=== PATIENT | female | born 1960 | race Two or more races ===

== ENCOUNTER 2020-08-04 10:57 | Outpatient (REF) | payer OTHER, SELFPAY ==
[2020-08-04 11:29] LABS: MANUAL DIFF FLAG NO
[2020-08-04 11:37] LABS: Basophils Percent Auto 0.8 % (0-2); Eosinophils Absolute Auto 0.1 X10*3/uL (0.0-0.4); Eosinophils Percent Auto 2.1 % (0-4); Hematocrit 40.4 % (37-47); Hemoglobin 12.9 g/dl (12.0-16.0); Imm Gran Abs Auto 0.02 X10*3/uL (0.00-0.03); Imm Gran Pct Auto 0.5 % (0.0-0.4); Lymphocytes Absolute Auto 1.8 X10*3/uL (1.2-4.9); Lymphocytes Percent Auto 48.9 % (20-40); Mean Corpuscular HGB Conc 31.9 g/dl (31.0-35.0); Mean Corpuscular Hemoglobin 28.2 pg (27.0-33.0); Mean Corpuscular Volume 88.2 fL (80-98); Mean Platelet Volume 11.1 fL (9.4-12.3); Monocytes Absolute Auto 0.3 X10*3/uL (0.1-1.2); Monocytes Percent Auto 6.6 % (2-11); Neutrophils Absolute Auto 1.5 X10*3/uL (2.0-8.3); Neutrophils Percent Auto 41.1 % (45-73); Platelet Count 295 X10*3/uL (160-400); Red Blood Count 4.58 X10*6/uL (4.20-5.50); Red Cell Distribution Width 13.4 % (11.0-16.0); White Blood Count 3.8 X10*3/uL (4.8-10.8)
[2020-08-04 11:45] LABS: Estimated Average Glucose 146 mg/dL; Hemoglobin A1c % 6.7 %
[2020-08-04 12:04] LABS: Alanine Aminotransferase 20 U/L (0-31); Albumin Level 4.3 g/dL (3.5-5.0); Alkaline Phosphatase 121 U/L (39-117); Anion Gap 10 (12-20); Aspartate Amino Transferase 24 U/L (5-31); Bilirubin Total 0.4 mg/dL (0.0-1.0); Blood Urea Nitrogen 20 mg/dL (9-16); Calcium 9.1 mg/dL (8.4-10.2); Carbon Dioxide 28 mmol/L (22-29); Chloride 105 mmol/L (96-108); Cholesterol 202 mg/dL; Estimated Glomerular Filt Rate > 60; Glucose Fasting 107 mg/dL (60-99); HDL Cholesterol 64 mg/dL; LDL Cholesterol Calculated 118 mg/dl; Potassium 4.1 mmol/l (3.3-5.1); Sodium 139 mmol/L (135-145); Total Protein 7.5 g/dL (6.5-8.0); Triglycerides 101 mg/dL
[2020-08-04 12:30] LABS: Creatinine Urine 111.62 mg/dL; Microalbum/Creatinine Ratio Ur 12.5 ug/mg cr
== END 2020-08-04 10:58 | disposition home or self-care (01) ==
LOC: HO.LAB 10:57
PROVIDERS: PCP Internal Medicine; Visit Provider Internal Medicine
DX: E11.9 Type 2 diabetes mellitus without complications (principal); E78.2 Mixed hyperlipidemia; Z00.00 Encounter for general adult medical examination without abnormal findings; Z91.14 Patient's other noncompliance with medication regimen
CPT/HCPCS: 36415; 80053; 80061; 82043; 83036; 84443; 85025

== ENCOUNTER 2020-12-07 09:46 | Outpatient (REF) | payer OTHER, SELFPAY ==
[2020-12-07 10:54] LABS: Estimated Average Glucose 309 mg/dL; Hemoglobin A1c % 12.4 %
[2020-12-07 11:29] LABS: Alanine Aminotransferase 16 U/L (0-31); Albumin Level 4.2 g/dL (3.5-5.0); Alkaline Phosphatase 157 U/L (39-117); Anion Gap 13 (12-20); Aspartate Amino Transferase 17 U/L (5-31); Bilirubin Total < 0.2 mg/dL (0.0-1.0); Blood Urea Nitrogen 12 mg/dL (9-16); Carbon Dioxide 27 mmol/L (22-29); Chloride 101 mmol/L (96-108); Cholesterol 168 mg/dL; Estimated Glomerular Filt Rate > 60; Glucose Random 328 mg/dL (60-115); HDL Cholesterol 43 mg/dL; LDL Cholesterol Calculated 101 mg/dl; Potassium 4.9 mmol/L (3.3-5.1); Sodium 136 mmol/L (135-145); Total Protein 7.3 g/dL (6.5-8.0); Triglycerides 122 mg/dL
== END 2020-12-07 09:47 | disposition home or self-care (01) ==
LOC: HO.LAB 09:46
PROVIDERS: PCP Internal Medicine; Visit Provider Internal Medicine
DX: E11.65 Type 2 diabetes mellitus with hyperglycemia (principal); E78.2 Mixed hyperlipidemia; R35.8 Other polyuria; R63.1 Polydipsia
CPT/HCPCS: 36415; 80053; 80061; 83036

== ENCOUNTER 2021-08-06 08:53 | Outpatient (REF) | payer OTHER, SELFPAY ==
[2021-08-06 10:13] LABS: MANUAL DIFF FLAG NO
[2021-08-06 10:17] LABS: Basophils Percent Auto 0.7 % (0-2); Eosinophils Absolute Auto 0.1 X10*3/uL (0.0-0.4); Eosinophils Percent Auto 1.1 % (0-4); Hematocrit 38.7 % (37.0-47.0); Hemoglobin 12.6 g/dl (12.0-16.0); Imm Gran Abs Auto 0.01 X10*3/uL (0.00-0.03); Imm Gran Pct Auto 0.2 % (0.0-0.4); Lymphocytes Absolute Auto 1.9 X10*3/uL (1.2-4.9); Lymphocytes Percent Auto 42.4 % (20-40); Mean Corpuscular HGB Conc 32.6 g/dl (31.0-35.0); Mean Corpuscular Hemoglobin 28.2 pg (27.0-33.0); Mean Corpuscular Volume 86.6 fL (80.0-98.0); Mean Platelet Volume 12.4 fL (9.4-12.3); Monocytes Absolute Auto 0.3 X10*3/uL (0.1-1.2); Monocytes Percent Auto 6.8 % (2-11); Neutrophils Absolute Auto 2.2 x10*3/uL (2.0-8.3); Neutrophils Percent Auto 48.8 % (45-73); Platelet Count 246 X10*3/uL (160-400); Red Blood Count 4.47 X10*6/uL (4.20-5.50); Red Cell Distribution Width 13.4 % (11.0-16.0); White Blood Count 4.5 X10*3/uL (4.8-10.8)
[2021-08-06 10:52] LABS: Creatinine Urine 22.81 mg/dL; Microalbumin Urine < 5.0 mg/L
[2021-08-06 11:01] LABS: Alanine Aminotransferase 18 U/L (0-31); Alkaline Phosphatase 155 U/L (39-117); Anion Gap 15 (12-20); Aspartate Amino Transferase 13 U/L (5-31); Bilirubin Total 0.3 mg/dL (0.0-1.0); Blood Urea Nitrogen 12 mg/dL (9-16); Calcium 8.6 mg/dL (8.4-10.2); Carbon Dioxide 21 mmol/L (22-29); Chloride 98 mmol/L (96-108); Cholesterol 174 mg/dL; Estimated Glomerular Filt Rate 42; Glucose Fasting 687 mg/dL (60-99); HDL Cholesterol 57 mg/dL; LDL Cholesterol Calculated 96 mg/dl; Sodium 130 mmol/L (135-145); Total Protein 6.9 g/dL (6.5-8.0); Triglycerides 107 mg/dL
[2021-08-06 11:12] LABS: Thyroid Stimulating Hormone 2.16 uIU/mL (0.32-4.0)
== END 2021-08-06 08:54 | disposition home or self-care (01) ==
LOC: HO.10HDL 08:53
PROVIDERS: Visit Provider Internal Medicine
DX: B35.1 Tinea unguium (principal); E11.65 Type 2 diabetes mellitus with hyperglycemia; E78.2 Mixed hyperlipidemia
CPT/HCPCS: 36415; 80053; 80061; 82043; 84443; 85025

== ENCOUNTER 2021-12-29 09:37 | Outpatient (REF) | payer OTHER, SELFPAY ==
[2021-12-29 11:03] LABS: Alanine Aminotransferase 14 U/L (0-31); Albumin Level 3.9 g/dL (3.5-5.0); Alkaline Phosphatase 126 U/L (39-117); Anion Gap 12 (12-20); Aspartate Amino Transferase 17 U/L (5-31); Bilirubin Total 0.5 mg/dL (0.0-1.0); Blood Urea Nitrogen 16 mg/dL (9-16); Calcium 9.1 mg/dL (8.4-10.2); Carbon Dioxide 27 mmol/L (22-29); Chloride 103 mmol/L (96-108); Estimated Glomerular Filt Rate > 60; Glucose Random 251 mg/dL (60-115); Potassium 4.1 mmol/L (3.3-5.1); Sodium 138 mmol/L (135-145); Total Protein 6.9 g/dL (6.5-8.0)
[2021-12-29 12:13] LABS: Hemoglobin A1c % > 14.0 %
== END 2021-12-29 09:38 | disposition home or self-care (01) ==
LOC: HO.10HDL 09:37
PROVIDERS: Visit Provider Internal Medicine
DX: E11.65 Type 2 diabetes mellitus with hyperglycemia (principal); Z91.14 Patient's other noncompliance with medication regimen
CPT/HCPCS: 36415; 80053; 83036

== ENCOUNTER 2022-05-25 10:28 | Outpatient (REF) | payer OTHER, SELFPAY ==
[2022-05-25 14:07] LABS: Alanine Aminotransferase 18 U/L (0-31); Alkaline Phosphatase 124 U/L (39-117); Anion Gap 15 (12-20); Aspartate Amino Transferase 18 U/L (5-31); Bilirubin Total 0.5 mg/dL (0.0-1.0); Blood Urea Nitrogen 10 mg/dL (9-16); Calcium 9.1 mg/dL (8.4-10.2); Carbon Dioxide 26 mmol/L (22-29); Chloride 97 mmol/L (96-108); Estimated Glomerular Filt Rate 58; Glucose Fasting 395 mg/dL (60-99); Potassium 4.3 mmol/L (3.3-5.1); Sodium 134 mmol/L (135-145)
[2022-05-25 14:24] LABS: Hemoglobin A1c % > 14.0 %; Thyroid Stimulating Hormone 1.84 uIU/mL (0.32-4.0)
== END 2022-05-25 10:29 | disposition home or self-care (01) ==
LOC: HO.10HDL 10:28
PROVIDERS: Visit Provider Internal Medicine
DX: E11.65 Type 2 diabetes mellitus with hyperglycemia (principal); E78.2 Mixed hyperlipidemia; R63.4 Abnormal weight loss; Z91.14 Patient's other noncompliance with medication regimen
CPT/HCPCS: 36415; 80053; 83036; 84443

== ENCOUNTER 2023-04-12 09:33 | Outpatient (REF) | payer OTHER, SELFPAY ==
[2023-04-12 10:51] LABS: MANUAL DIFF FLAG NO
[2023-04-12 11:03] LABS: Basophils Percent Auto 0.6 % (0-2); Eosinophils Percent Auto 0.8 % (0-4); Hematocrit 41.3 % (37.0-47.0); Hemoglobin 13.8 g/dl (12.0-16.0); Imm Gran Abs Auto 0.01 X10*3/uL (0.00-0.03); Imm Gran Pct Auto 0.2 % (0.0-0.4); Lymphocytes Percent Auto 40.7 % (20-40); Mean Corpuscular HGB Conc 33.4 g/dl (31.0-35.0); Mean Corpuscular Hemoglobin 29.4 pg (27.0-33.0); Mean Corpuscular Volume 87.9 fL (80.0-98.0); Mean Platelet Volume 11.5 fL (9.4-12.3); Monocytes Absolute Auto 0.3 X10*3/uL (0.1-1.2); Neutrophils Absolute Auto 2.6 x10*3/uL (2.0-8.3); Neutrophils Percent Auto 52.7 % (45-73); Platelet Count 313 X10*3/uL (160-400); Red Cell Distribution Width 12.1 % (11.0-16.0)
[2023-04-12 11:26] LABS: Hemoglobin A1c % > 14.0 %
[2023-04-12 11:43] LABS: Alanine Aminotransferase 23 U/L (0-31); Alkaline Phosphatase 124 U/L (39-117); Anion Gap 14 (12-20); Aspartate Amino Transferase 20 U/L (5-31); Bilirubin Total 0.4 mg/dL (0.0-1.0); Blood Urea Nitrogen 17 mg/dL (9-16); Calcium 9.2 mg/dL (8.4-10.2); Carbon Dioxide 24 mmol/L (22-29); Chloride 98 mmol/L (96-108); Cholesterol 217 mg/dL; Estimated Glomerular Filt Rate 55; HDL Cholesterol 67 mg/dL; LDL Cholesterol Calculated 122 mg/dl; Sodium 132 mmol/L (135-145); Thyroid Stimulating Hormone 2.34 uIU/mL (0.32-4.0); Total Protein 7.4 g/dL (6.5-8.0); Triglycerides 144 mg/dL
[2023-04-12 11:49] LABS: Creatinine Urine 34.16 mg/dL
[2023-04-12 13:26] LABS: Glucose Random 400 mg/dL (60-115)
== END 2023-04-12 09:34 | disposition home or self-care (01) ==
LOC: HO.10HDL 09:33
PROVIDERS: Visit Provider Internal Medicine
DX: Z00.01 Encounter for general adult medical examination with abnormal findings (principal); E11.65 Type 2 diabetes mellitus with hyperglycemia; E78.2 Mixed hyperlipidemia; R63.4 Abnormal weight loss
CPT/HCPCS: 36415; 80053; 80061; 82043; 83036; 84443; 85025

== ENCOUNTER 2023-07-26 08:54 | Outpatient (REF) | payer OTHER, SELFPAY ==
[2023-07-26 10:57] LABS: Alanine Aminotransferase 19 U/L (0-31); Albumin Level 4.1 g/dL (3.5-5.0); Alkaline Phosphatase 130 U/L (39-117); Anion Gap 15 (12-20); Aspartate Amino Transferase 24 U/L (5-31); Bilirubin Total 0.5 mg/dL (0.0-1.0); Blood Urea Nitrogen 13 mg/dL (9-16); Calcium 9.3 mg/dL (8.4-10.2); Carbon Dioxide 24 mmol/L (22-29); Chloride 97 mmol/L (96-108); Estimated Glomerular Filt Rate 52; Potassium 4.3 mmol/L (3.3-5.1); Sodium 132 mmol/L (135-145); Total Protein 7.4 g/dL (6.5-8.0)
[2023-07-26 11:01] LABS: Glucose Random 454 mg/dL (60-115)
[2023-07-26 11:07] LABS: Hemoglobin A1c % > 14.0 % (<6.0)
== END 2023-07-26 08:55 | disposition home or self-care (01) ==
LOC: HO.10HDL 08:54
PROVIDERS: Visit Provider Internal Medicine
DX: E11.65 Type 2 diabetes mellitus with hyperglycemia (principal)
CPT/HCPCS: 36415; 80053; 83036

== ENCOUNTER 2023-10-08 16:28 | Emergency (ER) | payer OTHER, SELFPAY ==
--- NOTE | ~2023-10-08 | CT_ITS ---
EXAMINATION: CT HEAD WITHOUT CONTRAST CT CERVICAL SPINE WITHOUT CONTRAST CLINICAL INFORMATION: Fall. Back pain. . COMPARISON: None. TECHNIQUE: Imaging was performed from the skull base to vertex without intravenous administration of contrast. In addition, helical noncontrast CT imaging was acquired through the cervical spine and source images were reviewed along with axial reconstructions and sagittal and coronal MPRs. [This CT examination was performed using dose optimization techniques as appropriate, variously including the following: *Automated exposure control *Adjustment of mA and/or kV according to patient size (this includes techniques or standardized protocols for targeted exams where dose is matched to indication/reason for exam; i.e. extremities or head) *Use of iterative reconstruction technique] DLP: 984 mGy-cm FINDINGS: HEAD: No intracranial mass, hemorrhage, or midline shift is visualized. The ventricles and sulci are proportional. Physiologic mineralization in the basal ganglia. No extra-axial collections are identified. The paranasal sinuses and mastoid air cells are well aerated. CERVICAL SPINE: There is no evidence of acute cervical spine fracture. Vertebral bodies remain normal in height. Cervical vertebrae have normal alignment. There is multilevel degenerative spondylosis of the cervical spine with disc height narrowing and endplate spurs and facet joint arthrosis No pre- or paravertebral soft tissue abnormality is identified. Limited assessment of the lung apices is unremarkable. CT/CT cervical spine wo IV con IMPRESSION: 1. No acute intracranial pathology. 2. No CT evidence of acute cervical spine fracture or traumatic subluxation
--- NOTE | ~2023-10-08 | CT_ITS ---
EXAMINATION: CT HEAD WITHOUT CONTRAST CT CERVICAL SPINE WITHOUT CONTRAST CLINICAL INFORMATION: Fall. Back pain. . COMPARISON: None. TECHNIQUE: Imaging was performed from the skull base to vertex without intravenous administration of contrast. In addition, helical noncontrast CT imaging was acquired through the cervical spine and source images were reviewed along with axial reconstructions and sagittal and coronal MPRs. [This CT examination was performed using dose optimization techniques as appropriate, variously including the following: *Automated exposure control *Adjustment of mA and/or kV according to patient size (this includes techniques or standardized protocols for targeted exams where dose is matched to indication/reason for exam; i.e. extremities or head) *Use of iterative reconstruction technique] DLP: 984 mGy-cm FINDINGS: HEAD: No intracranial mass, hemorrhage, or midline shift is visualized. The ventricles and sulci are proportional. Physiologic mineralization in the basal ganglia. No extra-axial collections are identified. The paranasal sinuses and mastoid air cells are well aerated. CERVICAL SPINE: There is no evidence of acute cervical spine fracture. Vertebral bodies remain normal in height. Cervical vertebrae have normal alignment. There is multilevel degenerative spondylosis of the cervical spine with disc height narrowing and endplate spurs and facet joint arthrosis No pre- or paravertebral soft tissue abnormality is identified. Limited assessment of the lung apices is unremarkable. CT/CT head/brain wo IV con IMPRESSION: 1. No acute intracranial pathology. 2. No CT evidence of acute cervical spine fracture or traumatic subluxation
--- NOTE | ~2023-10-08 | XR_ITS ---
EXAMINATION: XR KNEE, RIGHT CLINICAL INFORMATION: Fall. Pain. COMPARISON: None available. TECHNIQUE: Four views of the right knee. FINDINGS: There is osteopenia. No fracture. No dislocation. No joint effusion. Advanced degenerative tricompartment degenerative change. Joint narrowing and marginal bone spurs most significant at the patellofemoral and the medial femoral tibial joints. XR/XR knee RT 4V IMPRESSION: 1. No acute abnormality. 2. Advanced degenerative joint disease.
[2023-10-08 16:30] VITALS: BP 138/72; PULSE 76; RESP 18; TEMP 36.1; O2SAT 100; BMI 22.3
--- NOTE | 2023-10-08 16:31 | ED.LOWEXIN ---
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 Patient reports walking down a hallway while at work when she slipped on pudding that was spilled on the tile floor, causing her to fall backward landing flat on her back. Admits to head strike. Denies LOC. Not on AC. Endorses right knee pain at present after her right knee twisted under her during fall. Pain is localized to the medial aspect of the right knee. No radiation of pain. She was able to stand, bear weight and ambulate after fall. Reports receiving Tylenol or ibuprofen at work however can not recall which one. Denies headache, vision changes, dizziness, N/V, back pain, numbness/weakness/tingling of the LE. Related Data Allergies Allergy/AdvReac Type Severity Reaction Status Date / Time No Known Allergies Allergy Unknown UNKNOWN Unverified 06/04/20 15:50 [NO KNOWN ALLERGIES] Review of Systems Review of Systems: Constitutional: No fever, chills, fatigue, night sweats, weight changes ENT/Mouth: No ear pain, hearing loss, nasal congestion, sinus pain, rhinorrhea, sore throat Eyes: No eye pain, swelling, redness, vision changes, discharge Cardio: No chest pain, palpitations, BA, orthopnea, peripheral edema Pulm: No SOB, cough, sputum, wheezing, dyspnea, hemoptysis GI: No nausea, vomiting, hematemesis, abdominal pain, diarrhea, constipation, hematochezia, melena : No irregular bleeding, dysuria, frequency, urgency, hesitancy, hematuria, flank pain, urinary flow changes, urinary incontinence or retention MSK: No back pain, +neck pain, +right knee pain Skin: No lesions, rashes Neuro: No weakness, numbness, paresthesias, LOC, dizziness, headache All other systems reviewed and are negative. [facility] Past Medical History Attestation statement: The following information was validated with the patient. Source: old records reviewed and nursing notes reviewed Onset Date is defined in the Problem List Problems that require an onset date and time if occurred within 24 hrs of arrival to the ED Aortic Dissection and Rupture; Neurologic impairment; Cardiopulmonary Arrest; Endotracheal Intubation; Insertion or Replacement of Mechanical Circulatory Assist Device Family History Family History Father Hypertension Heart disease Mother Diabetes Degenerative joint disease Daughter ADD (attention deficit disorder) Anorexia Daughter ADD (attention deficit disorder) Social History Social History Alcohol intake: current Alcohol intake frequency: other Patient Tobacco Use Status: Former Tobacco user Advance Directives: No Advance Directives Information Provided: No Physical Exam Vital Signs: Vital Signs: Last Vital Signs Temp 97 F 10/08/23 16:30 Pulse 76 10/08/23 16:30 Resp 18 10/08/23 16:30 BP 138/72 10/08/23 16:30 Pulse Ox 100 10/08/23 16:30 O2 Del Method Room Air 10/08/23 16:30 BMI result Body Mass Index 22.3 Vital signs stable Const: General: cooperative, healthy appearing, comfortable and no acute distress Orientation/consciousness: patient oriented x3 Limitations: no limitations HEENT: Head: Yes normal to inspection, Yes No palpable skull fracture present, Yes normocephalic, Yes atraumatic, No Dale's sign, No raccoon eyes and No periorbital ecchymosis Eyes: General: appearance normal, both eyes and all related structures Conjunctivae: conjunctivae normal Sclerae: sclerae normal Pupils: Equal, round and reactive pupils present Neck: Neck: Yes normal visual inspection and Yes full ROM Chest: Chest palpation & inspection: normal inspection of the chest Resp: Effort & Inspection: normal respiratory effort and symmetric chest movement Auscultation: clear to auscultation bilaterally Cardio: Rate: regular rate Rhythm: regular rhythm Back/Spine/Pelvis: Other: No midline spinous tenderness. No paraspinal muscle tenderness. No step off deformity. Skin: General skin exam: no rashes or lesions noted Neuro: Other: Strength 5/5 intact throughout.? No saddle anesthesia.? Sensation intact to light touch.? Neurovascular intact distally.? General: patient oriented x3 and gait normal Cranial nerves: Yes Equal, round and reactive pupils present Gait exam (Neuro): Normal gait present Motor exam (neuro): 5/5 motor strength present throughout Coordination: cucvyp-bi-ofsz test normal, dzwm-oa-[id number] test normal and Normal rapid alternating movements of the distal upper extremity present (Neuro) Pupils: Normal pupillary reactivity/response: bilateral Extrem: Other: + No edema or overlying skin changes noted to right knee joint. Full ROM to right knee intact. Tender to palpation over the medial aspect of the anterior right knee without palpable deformity. Neurovascularly intact distally. 2+dp/pt pulses. ambulating with steady gait. General: Yes normal to inspection, Yes full ROM, Yes capillary refill normal and Yes normal gait Course Course Course Narrative: This is an RME: Additional HPI, ROS, PE not included below will be deferred to primary provider. Patient is a 63-year-old female presenting for evaluation after mechanical slip and fall at work resulting in twisting injury with right knee pain. Reports striking her head, no LOC, no AC, no headache. Reevaluation(s) Reevaluation #1: 1810-- XR right knee unremarkable. ct head/brain without acute bleed or skull fracture. ct cervical spine without fracture or subluxation. Patient informed of imaging results. Advised to take Tylenol and ibuprofen as needed for pain at home. Patient has remained stable throughout ED visit today. Discussed strict return precautions. All questions answered at this time. Patient is agreeable with disposition and stable for discharge. 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 Vital signs are stable. Patient is nontoxic-appearing and in no acute distress. She is sitting comfortably on the exam bed talking on the phone. Exam nonfocal. PERRLA. No palpable skull fracture. No midline spinous tenderness or paraspinal muscle tenderness bilaterally. Full ROM to C-spine intact. No effusion or overlying skin changes noted to right knee joint. Full ROM to right knee intact. Tender to palpation over the medial aspect of the anterior right knee without palpable deformity. Neurovascularly intact distally. 2+dp/pt pulses. Ambulating with steady gait. Clinical concern for headache, concussion, cervical fracture, fracture of knee, contusion. Lower suspicion for ICH, CVA/TIA. Unlikely cauda equina, epidural abscess, cord compression. X-ray right knee ordered in triage. Will add on CT head/brain/C-spine as patient reports head strike. Differential Diagnosis Differential Diagnoses: The differential diagnosis associated with the presentation includes As above. Admission/Observation Not indicated. Independent Interpretation I performed an independent interpretation of an: Plain X-Ray and CT Scan Interpretation: I have personally reviewed x-ray of right knee and agree with radiologist's interpretation. I have personally reviewed CT cervical spine and agree with radiologist's interpretation. I have personally reviewed CT head/brain and agree with radiologist's interpretation. Radiology Impression Discussion of test interpretation with radiology: I have reviewed the radiologist's reading. Radiologist Impression: CT head/brain/cervical spine wo IV con IMPRESSION: 1. No acute intracranial pathology. 2. No CT evidence of acute cervical spine fracture or traumatic subluxation XR knee RT 4V IMPRESSION: 1. No acute abnormality. 2. Advanced degenerative joint disease. Prescription Management I considered prescription management with: Pain Medication Social Determinants Patient?s care significantly limited by Social Determinants of Health including: Other Social Determinant of Health Discharge Plan Discharge Clinical Impression: Accident due to mechanical fall without injury Patient Disposition: Home, Self-Care Instructions: Fall Prevention (ED) Additional Instructions: The x-ray of your right knee did not demonstrate fracture or dislocation. The CT of your neck did not demonstrate fracture. The CT of your head/brain did not show acute bleed or skull fracture. Your workup was normal overall. You may take Tylenol and ibuprofen as needed for body aches or pains. Ice your knee for 20 minutes at a time before switching to heat. Follow-up with your PCP as needed. If symptoms persist or worsen please return to the emergency department. In the case of an emergency call 911. Referrals: Melissa Butts MD [Primary Care Provider] - Stand Alone Forms: Work/School Release Discharge Date/Time: 10/08/23 18:21
== END 2023-10-08 18:21 | disposition home or self-care (01) ==
PROVIDERS: Emergency Provider Emergency Medicine; PCP Internal Medicine
DX: S89.91XA Unspecified injury of right lower leg, initial encounter (principal); S19.9XXA Unspecified injury of neck, initial encounter; M25.561 Pain in right knee; M54.2 Cervicalgia; W01.0XXA Fall on same level from slipping, tripping and stumbling without subsequent striking against object, initial encounter; Y93.9 Activity, unspecified; Y92.9 Unspecified place or not applicable; Y99.0 Civilian activity done for income or pay; Z87.891 Personal history of nicotine dependence
CPT/HCPCS: 70450; 72125; 73564; 99284

== ENCOUNTER 2023-10-19 09:01 | Outpatient (AMB) | payer OTHER, SELFPAY ==
--- NOTE | 2023-10-19 09:03 | MHC.OFFVIS ---
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 On 10/08/23 while at work she was walking down the [place] when she slipped on spilled pudding, landing on her back with the right leg twisted under her. She was seen at [facility] after the injury where she was evaluated. 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 This is a workers comp visit. She says she was at work and slipped on a puddle, causing her to fall backwards and land with her right leg twisted underneath her. She was seen in the ED on 10/08/23 and referred here. She complains of pain with WB activities. She finds some relief from NSAIDs and icing her knee. She has a history of right knee arthritis. [facility] Family History Father Hypertension Heart disease Mother Diabetes Degenerative joint disease Daughter ADD (attention deficit disorder) Anorexia Daughter ADD (attention deficit disorder) Social History Alcohol intake: current Alcohol intake frequency: other Patient Tobacco Use Status: Former Tobacco user Review of Systems Const All systems reviewed & are unremarkable except as noted in HPI and below Physical Exam Const General: no acute distress, alert and awake Orientation/consciousness: patient oriented x3 HEENT Head: Yes normocephalic and Yes atraumatic Eyes EOM: EOMs intact bilaterally Resp Effort & Inspection: normal respiratory effort and able to speak in complete sentences Cardio Jugular venous distension: no JVD Skin General skin exam: turgor normal Rashes: no rashes Neuro General: patient oriented x3 Extrem Other: Mild effusion lateral retropatellar ttp no focal pain along joint line Psych Appearance: grossly normal Affect: normal affect Attitude: cooperative Office Procedures Joint Injection/Drain Joint Injection/Drain Details: Injected 1 mL of Decadron and 3 mL 1% lidocaine and 3 mL of 0.25% Marcaine. Site was prepped using aseptic technique. Patient tolerated the procedure well. Primary Site: right knee Approach Used: anterolateral Coding - Large joint Procedure code (CPT) selection complete Results Reviewed Results Reviewed: I personally reviewed relevant radiographs. Advandced degenerative OA Assessment & Plan Assessment & Plan (1) Arthritis of right knee: Code(s): M17.11 - Unilateral primary osteoarthritis, right knee Plan: Right knee OA with recent exacerbation after a fall at work. She is back to work and knows she has arthritis. She has benefitted from injections in the past and I injected her right knee today. She may follow up as needed. She may resume normal work activities without restriction. Plan Prepared for Ilan Juarez MD by Donald Baldwin, remote medical coder, on 10/19/23 at 9:10 AM, EST. Coding Level of Care Code New Pt Level 4 (44680) Diagnoses Arthritis of right knee M17.11 CPT Codes Coding - Large joint: 62469 - Large joint ([id number])
== END 2023-10-19 09:47 | disposition home or self-care (01) ==
PROVIDERS: PCP Internal Medicine; Visit Provider Orthopaedic Surgery
DX: M17.11 Unilateral primary osteoarthritis, right knee (principal); S80.11XA Contusion of right lower leg, initial encounter; W01.0XXA Fall on same level from slipping, tripping and stumbling without subsequent striking against object, initial encounter; Z04.2 Encounter for examination and observation following work accident
CPT/HCPCS: 20610; 99203

== ENCOUNTER → 2023-10-19 09:01 | Outpatient (BNVA) | payer OTHER, SELFPAY | PROVIDERS: PCP Internal Medicine; Visit Provider Orthopaedic Surgery | DX: M17.11 Unilateral primary osteoarthritis, right knee (principal) | CPT/HCPCS: 20610; 99202; J0665; J1100 ==

== ENCOUNTER 2024-01-31 10:06 | Outpatient (REF) | payer OTHER, SELFPAY ==
[2024-01-31 11:34] LABS: Hemoglobin A1c % > 14.0 % (<6.0)
[2024-01-31 11:42] LABS: Alanine Aminotransferase 17 U/L (0-31); Albumin Level 4.1 g/dL (3.5-5.0); Alkaline Phosphatase 126 U/L (39-117); Anion Gap 11 (12-20); Aspartate Amino Transferase 17 U/L (5-31); Bilirubin Total 0.4 mg/dL (0.0-1.0); Blood Urea Nitrogen 13 mg/dL (9-16); Calcium 9.3 mg/dL (8.4-10.2); Carbon Dioxide 27 mmol/L (22-29); Chloride 100 mmol/L (96-108); Estimated Glomerular Filt Rate > 60; Potassium 4.4 mmol/L (3.3-5.1); Sodium 134 mmol/L (135-145); Total Protein 7.4 g/dL (6.5-8.0)
[2024-01-31 11:45] LABS: Glucose Random 391 mg/dL (60-115)
== END 2024-01-31 10:07 | disposition home or self-care (01) ==
LOC: HO.10HDL 10:06
PROVIDERS: Visit Provider Internal Medicine
DX: E11.65 Type 2 diabetes mellitus with hyperglycemia (principal); M17.11 Unilateral primary osteoarthritis, right knee; Z79.4 Long term (current) use of insulin
CPT/HCPCS: 36415; 80053; 83036

== ENCOUNTER 2024-03-07 09:13 | Outpatient (REF) | payer OTHER, SELFPAY ==
[2024-03-07 10:56] LABS: MANUAL DIFF FLAG NO
[2024-03-07 11:02] LABS: Basophils Absolute Auto 0.1 X10*3/uL (0.0-0.2); Basophils Percent Auto 0.9 % (0-2); Eosinophils Absolute Auto 0.1 X10*3/uL (0.0-0.4); Eosinophils Percent Auto 1.7 % (0-4); Hematocrit 39.1 % (37.0-47.0); Hemoglobin 13.5 g/dl (12.0-16.0); Imm Gran Abs Auto 0.01 X10*3/uL (0.00-0.03); Imm Gran Pct Auto 0.2 % (0.0-0.4); Lymphocytes Absolute Auto 2.1 X10*3/uL (1.2-4.9); Lymphocytes Percent Auto 39.9 % (20-40); Mean Corpuscular HGB Conc 34.5 g/dl (31.0-35.0); Mean Corpuscular Hemoglobin 30.1 pg (27.0-33.0); Mean Corpuscular Volume 87.3 fL (80.0-98.0); Mean Platelet Volume 11.2 fL (9.4-12.3); Monocytes Absolute Auto 0.3 X10*3/uL (0.1-1.2); Monocytes Percent Auto 5.8 % (2-11); Neutrophils Absolute Auto 2.7 x10*3/uL (2.0-8.3); Neutrophils Percent Auto 51.5 % (45-73); Platelet Count 281 X10*3/uL (160-400); Red Blood Count 4.48 X10*6/uL (4.20-5.50); Red Cell Distribution Width 12.3 % (11.0-16.0); White Blood Count 5.3 X10*3/uL (4.8-10.8)
[2024-03-07 11:09] LABS: Hemoglobin A1c % > 14.0 % (<6.0)
[2024-03-07 11:21] LABS: Alanine Aminotransferase 18 U/L (0-31); Alkaline Phosphatase 119 U/L (39-117); Anion Gap 13 (12-20); Aspartate Amino Transferase 19 U/L (5-31); Bilirubin Total 0.4 mg/dL (0.0-1.0); Blood Urea Nitrogen 18 mg/dL (9-16); Calcium 9.5 mg/dL (8.4-10.2); Carbon Dioxide 23 mmol/L (22-29); Chloride 103 mmol/L (96-108); Cholesterol 180 mg/dL (<200); Estimated Glomerular Filt Rate > 60; Glucose Random 342 mg/dL (60-115); HDL Cholesterol 63 mg/dL (>40); LDL Cholesterol Calculated 96 mg/dL (<100); Potassium 4.1 mmol/L (3.3-5.1); Sodium 135 mmol/L (135-145); Total Protein 7.3 g/dL (6.5-8.0); Triglycerides 105 mg/dL (<150)
[2024-03-07 11:38] LABS: Creatinine Urine 79.88 mg/dL; Microalbum/Creatinine Ratio Ur 27.5 ug/mg cr (<30)
[2024-03-07 11:40] LABS: Thyroid Stimulating Hormone 2.35 uIU/mL (0.32-4.0)
== END 2024-03-07 09:14 | disposition home or self-care (01) ==
LOC: HO.10HDL 09:13
PROVIDERS: Visit Provider Internal Medicine
DX: E11.65 Type 2 diabetes mellitus with hyperglycemia (principal); E78.2 Mixed hyperlipidemia; M17.0 Bilateral primary osteoarthritis of knee; Z79.4 Long term (current) use of insulin
CPT/HCPCS: 36415; 80053; 80061; 82043; 82570; 83036; 84443; 85025

== ENCOUNTER 2024-05-27 10:03 | Outpatient (REF) | payer OTHER, SELFPAY ==
[2024-05-27 11:28] LABS: Alanine Aminotransferase 14 U/L (0-31); Albumin Level 4.1 g/dL (3.5-5.0); Alkaline Phosphatase 113 U/L (39-117); Anion Gap 12 (12-20); Aspartate Amino Transferase 17 U/L (5-31); Bilirubin Total 0.4 mg/dL (0.0-1.0); Blood Urea Nitrogen 17 mg/dL (9-16); Calcium 9.2 mg/dL (8.4-10.2); Carbon Dioxide 25 mmol/L (22-29); Chloride 107 mmol/L (96-108); Estimated Glomerular Filt Rate > 60; Glucose Random 163 mg/dL (60-115); Potassium 3.7 mmol/L (3.3-5.1); Sodium 140 mmol/L (135-145); Total Protein 7.5 g/dL (6.5-8.0)
[2024-05-27 11:36] LABS: Estimated Average Glucose 303 mg/dL; Hemoglobin A1c % 12.2 % (<6.0)
== END 2024-05-27 10:04 | disposition home or self-care (01) ==
LOC: HO.10HDL 10:03
PROVIDERS: Visit Provider Internal Medicine
DX: E11.9 Type 2 diabetes mellitus without complications (principal); H26.9 Unspecified cataract; Z79.4 Long term (current) use of insulin
CPT/HCPCS: 36415; 80053; 83036

== ENCOUNTER 2024-06-10 09:30 | Outpatient (AMB) | payer OTHER, SELFPAY ==
--- NOTE | 2024-06-10 09:58 | MHC.OFFVIS ---
Vital Signs 06/10/24 09:59 Height 5 ft 5 in Weight 134 lb BMI 22.3 Intake Visit Reasons: OV- B/L knee pain interest in inj Intake Note: Trang is a 63 year old female who presents today for a follow up of her right knee OA. She was last seen on 10/19/2023 where the knee was injected. The right knee injection was helpful and she would like to repeat. She also complains of pain in both of her knees, she is asking for injection and braces in both of the knees. Allergies No Known Allergies [NO KNOWN ALLERGIES] Allergy (Unknown, Unverified 10/19/23 09:04) UNKNOWN HPI HPI OV- B/L knee pain interest in inj: Details: Trang is a 63 year old female who presents today for a follow up of her right knee OA. She was last seen on 10/19/2023 where the knee was injected. The right knee injection was helpful and she would like to repeat. She also complains of pain in both of her knees, she is asking for injection and braces in both of the knees. PFSH Family History Father Hypertension Heart disease Mother Diabetes Degenerative joint disease Daughter ADD (attention deficit disorder) Anorexia Daughter ADD (attention deficit disorder) Social History Alcohol intake: current Alcohol intake frequency: other Patient Tobacco Use Status: Former Tobacco user Physical Exam Vital Signs: BMI result Body Mass Index 22.3 Const General: no acute distress, alert and awake Orientation/consciousness: patient oriented x3 HEENT Head: Yes normocephalic and Yes atraumatic Eyes EOM: EOMs intact bilaterally Resp Effort & Inspection: normal respiratory effort and able to speak in complete sentences Cardio Jugular venous distension: no JVD Skin General skin exam: turgor normal Rashes: no rashes Neuro General: patient oriented x3 Extrem Other: Mild effusion lateral retropatellar ttp no focal pain along joint line Psych Appearance: grossly normal Affect: normal affect Attitude: cooperative Office Procedures Joint Injection/Aspiration Joint Injection/Aspiration Details: Injected 1 mL of Decadron and 3 mL 1% lidocaine and 3 mL of 0.25% Marcaine. Site was prepped using aseptic technique. Patient tolerated the procedure well. Primary Site: right knee Secondary Site: left knee Approach Used: anterolateral Coding - Large joint - Glenohumeral/Tronchanteric Bursa/Intraarticular Procedure code (CPT) selection complete Results Reviewed Results Reviewed: Moderately severe right knee osteoarthritis with varus malalignment. Assessment & Plan Assessment & Plan (1) Arthritis of right knee: Code(s): M17.11 - Unilateral primary osteoarthritis, right knee Category: Medical Plan: Were right knee was injected and she was given a knee sleeve. We discussed treatment options. She is pretty adamant that she does not want surgery. In her she is young and surprisingly active considering the radiographic extent of disease. If she can return for repeat injections in no sooner than 3 months or, if she would like to discuss additional options she will contact me sooner. I suppose the next step would be viscosupplementation. (2) Osteoarthritis of left knee: Code(s): M17.12 - Unilateral primary osteoarthritis, left knee Category: Medical Plan: Injected left knee Coding Level of Care Code Est Pt Level 4 (91369) Diagnoses Arthritis of right knee M17.11 Osteoarthritis of left knee M17.12 CPT Codes Coding - Large joint: 07817 - Large joint ([id number]) Coding - Joint 7: - Glenohumeral/Tronchanteric Bursa/Intraarticular ([id number])
[2024-06-10 09:59] VITALS: BMI 22.3
== END 2024-06-10 13:48 | disposition home or self-care (01) ==
PROVIDERS: PCP Internal Medicine; Visit Provider Orthopaedic Surgery
DX: M17.0 Bilateral primary osteoarthritis of knee (principal)
CPT/HCPCS: 20610; 99214

== ENCOUNTER → 2024-06-10 09:30 | Outpatient (BNVA) | payer OTHER, SELFPAY | PROVIDERS: PCP Internal Medicine; Visit Provider Orthopaedic Surgery | DX: M17.0 Bilateral primary osteoarthritis of knee (principal) | CPT/HCPCS: 20610; J0665; J1100 ==

== ENCOUNTER 2024-08-12 10:31 | Outpatient (AMB) | payer OTHER, SELFPAY ==
--- NOTE | 2024-08-12 10:44 | MHC.OFFVIS ---
Vital Signs 08/12/24 10:46 Height 5 ft 5 in Weight 134 lb BMI 22.3 Intake Visit Reasons: OV-B/L knee arthritis-Discuss options Intake Note: Trang is a 64 year old female who presents today for a follow up of her bilateral knee OA. Hx of bilateral knee injections 06/10/24. Patient reports that this was not helpful and she would like to discuss alternative treatment options. Allergies No Known Allergies [NO KNOWN ALLERGIES] Allergy (Unknown, Unverified 08/12/24 10:46) UNKNOWN HPI HPI OV-B/L knee arthritis-Discuss options: Details: Trang is a 64 year old female who presents today for a follow up of her bilateral knee OA. Hx of bilateral knee injections 06/10/24. Patient reports that this was not helpful and she would like to discuss alternative treatment options. She describes the injection helping for about a week. She has been having constant pain however for years. Her right knee is worse than her left but both knees bother her. Radiographs show severe osteoarthritis. 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 She feels the quality of her life is suffering and would like to discuss arthroplasty. [facility] Family History Father Hypertension Heart disease Mother Diabetes Degenerative joint disease Daughter ADD (attention deficit disorder) Anorexia Daughter ADD (attention deficit disorder) Social History Alcohol intake: current Alcohol intake frequency: other Patient Tobacco Use Status: Former Tobacco user Physical Exam Vital Signs: BMI result Body Mass Index 22.3 Extrem Other: Right knee with 10 degree flexion contracture and varus malalignment with gonarthrosis involving the medial compartment. Results Reviewed Results Reviewed: I personally reviewed relevant radiographs. Severe osteoarthritis of the right knee involving mostly the medial compartment. Assessment & Plan Assessment & Plan (1) Arthritis of right knee: Code(s): M17.11 - Unilateral primary osteoarthritis, right knee Category: Medical Plan: 64-year-old woman with severe chronic osteoarthritis of the right knee that has not responded to PT, injections and NSAIDs. She feels quality of her life is poor and she can not walk for more than a few minutes, at most, without pain. I think it is reasonable to proceed forward with arthroplasty.I discussed the risks, benefits and alternatives including but not limited to the risk of pain, infection, stiffness, need for further surgery as well as potential medical complications such as blood clots, pulmonary embolism and cardiac complications. She would like to proceed forward and we will begin the preoperative clearance process. (2) Osteoarthritis of left knee: Code(s): M17.12 - Unilateral primary osteoarthritis, left knee Category: Medical Plan: She also has osteoarthritis of the left knee. Given that knee replacement surgeries 4-[address] I recommend we try viscosupplementation bilateral knees. Coding Level of Care Code Est Pt Level 4 (86077) Diagnoses Arthritis of right knee M17.11 Osteoarthritis of left knee M17.12
[2024-08-12 10:46] VITALS: BMI 22.3
== END 2024-08-12 11:32 | disposition home or self-care (01) ==
PROVIDERS: PCP Internal Medicine; Visit Provider Orthopaedic Surgery
DX: M17.0 Bilateral primary osteoarthritis of knee (principal)
CPT/HCPCS: 99214

== ENCOUNTER 2024-09-02 09:46 | Outpatient (REF) | payer OTHER, SELFPAY ==
[2024-09-02 11:55] LABS: Estimated Average Glucose 246 mg/dL; Hemoglobin A1C 306.3267 umol/L; Hemoglobin A1c % 10.2 % (<6.0); Total Hemoglobin (HGBA1C) 3464.6945 umol/L
[2024-09-02 12:01] LABS: Alanine Aminotransferase 15 U/L (0-31); Alkaline Phosphatase 96 U/L (39-117); Anion Gap 10 (12-20); Aspartate Amino Transferase 20 U/L (5-31); Bilirubin Total 0.2 mg/dL (0.0-1.0); Blood Urea Nitrogen 15 mg/dL (9-16); Carbon Dioxide 26 mmol/L (22-29); Chloride 104 mmol/L (96-108); Estimated Glomerular Filt Rate > 60; Glucose Random 204 mg/dL (60-115); Potassium 4.3 mmol/L (3.3-5.1); Sodium 136 mmol/L (135-145); Total Protein 7.8 g/dL (6.5-8.0)
== END 2024-09-02 09:47 | disposition home or self-care (01) ==
LOC: HO.10HDL 09:46
PROVIDERS: Visit Provider Internal Medicine
DX: E11.65 Type 2 diabetes mellitus with hyperglycemia (principal); Z79.4 Long term (current) use of insulin; Z91.199 Patient's noncompliance with other medical treatment and regimen due to unspecified reason
CPT/HCPCS: 36415; 80053; 83036

== ENCOUNTER 2025-01-17 10:14 | Outpatient (REF) | payer OTHER, SELFPAY ==
[2025-01-17 11:42] LABS: MANUAL DIFF FLAG NO
[2025-01-17 11:52] LABS: Basophils Percent Auto 0.7 % (0-2); Eosinophils Absolute Auto 0.1 X10*3/uL (0.0-0.4); Eosinophils Percent Auto 1.7 % (0-4); Hematocrit 37.4 % (37.0-47.0); Hemoglobin 12.4 g/dl (12.0-16.0); Imm Gran Abs Auto 0.01 X10*3/uL (0.00-0.03); Imm Gran Pct Auto 0.2 % (0.0-0.4); Lymphocytes Absolute Auto 2.6 X10*3/uL (1.2-4.9); Lymphocytes Percent Auto 42.7 % (20-40); Mean Corpuscular HGB Conc 33.2 g/dl (31.0-35.0); Mean Corpuscular Hemoglobin 28.8 pg (27.0-33.0); Mean Corpuscular Volume 86.8 fL (80.0-98.0); Mean Platelet Volume 10.8 fL (9.4-12.3); Monocytes Absolute Auto 0.4 X10*3/uL (0.1-1.2); Monocytes Percent Auto 6.3 % (2-11); Neutrophils Absolute Auto 2.9 x10*3/uL (2.0-8.3); Neutrophils Percent Auto 48.4 % (45-73); Platelet Count 335 X10*3/uL (160-400); Red Blood Count 4.31 X10*6/uL (4.20-5.50); Red Cell Distribution Width 13.4 % (11.0-16.0)
[2025-01-17 12:03] LABS: Estimated Average Glucose 275 mg/dL; Hemoglobin A1C 311.7934 umol/L; Hemoglobin A1c % 11.2 % (<6.0); Total Hemoglobin (HGBA1C) 3156.3643 umol/L
[2025-01-17 12:11] LABS: Alanine Aminotransferase 14 U/L (0-31); Alkaline Phosphatase 96 U/L (39-117); Anion Gap 11 (12-20); Aspartate Amino Transferase 19 U/L (5-31); Bilirubin Total 0.4 mg/dL (0.0-1.0); Blood Urea Nitrogen 17 mg/dL (9-16); Carbon Dioxide 27 mmol/L (22-29); Chloride 108 mmol/L (96-108); Cholesterol 209 mg/dL (<200); Estimated Glomerular Filt Rate > 60; Glucose Random 126 mg/dL (60-115); HDL Cholesterol 81 mg/dL (>40); LDL Cholesterol Calculated 112 mg/dL (<100); Potassium 3.7 mmol/L (3.3-5.1); Sodium 142 mmol/L (135-145); Triglycerides 83 mg/dL (<150)
[2025-01-17 12:15] LABS: Microalbum/Creatinine Ratio Ur 22.8 ug/mg cr (<30)
== END 2025-01-17 10:15 | disposition home or self-care (01) ==
LOC: HO.10HDL 10:14
PROVIDERS: Visit Provider Internal Medicine
DX: E11.9 Type 2 diabetes mellitus without complications (principal); E78.00 Pure hypercholesterolemia, unspecified; I10 Essential (primary) hypertension; Z79.4 Long term (current) use of insulin
CPT/HCPCS: 36415; 80053; 80061; 82043; 82570; 83036; 85025

== ENCOUNTER 2025-04-28 14:49 | Emergency (ER) | payer OTHER, SELFPAY ==
[2025-04-28] VITALS (7 sets, daily range): BP systolic 104–137; BP diastolic 54–86; PULSE 76–122; RESP 15–20; TEMP 36.6–36.9; O2SAT 99–100; BMI 20.8
--- NOTE | ~2025-04-28 | XR_ITS ---
CLINICAL HISTORY: upper back ppain 1 view chest x-ray Comparison: None provided Findings: No consolidation or effusion. Heart size is normal. No acute fracture. IMPRESSION: 1. No acute findings. This document has been electronically signed by: Cathy Bryan MD on 04/28/2025 20:38:50
--- NOTE | 2025-04-28 14:52 | ECG_ITS ---
Test Reason : CP Blood Pressure : */* mmHG Vent. Rate : 114 BPM Atrial Rate : 114 BPM P-R Int : 136 ms QRS Dur : 64 ms QT Int : 324 ms P-R-T Axes : 72 -16 92 degrees QTcB Int : 446 ms Sinus tachycardia Anterior infarct (cited on or before 03-Jan-2020) Abnormal ECG When compared with ECG of 03-Jan-2020 10:45, Minimal criteria for Inferior infarct are no longer Present T wave inversion no longer evident in Inferior leads Referred By: Generic ED Physician Electronically Signed By: Lorne Asif
--- NOTE | 2025-04-28 15:09 | ED_ITS ---
HPI - General Adult General Chief complaint: General Medical Stated complaint: Chest pain, DR eileen, SOB, Vomiting Time Seen by Provider: 04/28/25 18:55 Source: patient and family Mode of arrival: ambulatory Limitations: no limitations History of Present Illness ED Provider: HPI narrative: Patient is insulin dependent diabetic on Lantus and Humalog not taking her medication for last 3 days comes here for body pain and right upper back for last 3 feel sick to her stomach but no vomiting seen her PCP who sent the patient here patient does have history of DKA in the past no fever no chills no urinary symptom Related Data Home Medications ?Medication ?Instructions ?Recorded ?Confirmed insulin glargine-yfgn 100 unit/mL unit subcut 10/19/23 (3 mL) subcutaneous pen (Semglee (insulin glargine-yfgn) Pen) meloxicam 15 mg tablet 15 mg PO DAILY 10/19/23 rosuvastatin 10 mg tablet 10 mg PO BEDTIME 10/19/23 Previous Rx's ?Medication ?Instructions ?Recorded celecoxib 200 mg capsule (Celebrex) 200 mg PO BID #60 caps 08/07/24 walker #1 ea 09/24/24 Allergies Allergy/AdvReac Type Severity Reaction Status Date / Time No Known Allergies (NO KNOWN Allergy Unknown UNKNOWN Verified 04/28/25 15:13 ALLERGIES) Review of Systems 2 Review of Systems: Yes all other systems are reviewed and are negative [facility] Family History Family History Father Hypertension Heart disease Mother Diabetes Degenerative joint disease Daughter ADD (attention deficit disorder) Anorexia Daughter ADD (attention deficit disorder) Social History Social History Alcohol intake: current Alcohol intake frequency: other Patient Tobacco Use Status: Former Tobacco user Physical Exam ED Vital Signs: Vital Signs - 24 hr 04/28/25 15:09 04/28/25 19:04 04/28/25 20:20 Temperature 97.8 F 98.3 F Pulse Rate 122 H 98 83 Respiratory Rate 20 17 20 Blood Pressure 119/86 104/75 137/77 Pulse Oximetry 99 99 100 Oxygen Delivery Method Nasal Cannula Room Air Room Air 04/28/25 20:23 04/28/25 21:37 04/28/25 22:31 Temperature 98.4 F 98.1 F Pulse Rate 85 76 96 Respiratory Rate 15 18 16 Blood Pressure 137/77 136/61 116/60 Pulse Oximetry 100 99 99 Oxygen Delivery Method Room Air Room Air Room Air 04/28/25 23:50 04/29/25 00:16 Temperature 98.2 F 98.2 F Pulse Rate 109 H 109 H Respiratory Rate 16 16 Blood Pressure 109/54 L 109/54 L Pulse Oximetry 99 99 Oxygen Delivery Method Room Air Room Air BMI result Body Mass Index 20.8 Appearance: Alert. Oriented X3. No acute distress. Eyes: PERRLA, No Nystagmus ENT: Pharynx normal. Oral Mucosa moist Neck: Normal inspection. Neck supple. CVS: Normal heart rate and rhythm. Pulses normal. Respiratory: No respiratory distress. Equal air entry bilateral, no wheezing/rales/rhonchi Abdomen: Soft and nontender. Bowel sounds are present, no mass palpable, no CVA tenderness Skin: Skin warm and dry. Normal skin color. Normal skin turgor. Extremities: No lower extremity edema. No calf tenderness back: Diffuse tenderness right upper back good range of shoulder movement Neuro: Oriented X 3. No motor deficit. No sensory deficit.No cerebellar signs , cranial nerves II-XII intact Course Course Course Narrative: This is a rapid medical exam performed by Guido Razo NP: Additional HPI, ROS, PE not included below will be deferred to primary provider. Patient is a 64-year-old female with history of osteoarthritis presenting to the ED with complaint of chest pain, dyspnea, vomiting. Sent by Dr. Butts. States pain started to upper back and radiated to right shoulder Monday. Vomited x 4, short of breath. States pain is primarily to right scapular area. Plan: EKG, labs, CXR Medications Administered Discontinued Medications Generic Name Dose Route Start Last Admin Trade Name Freq PRN Reason Stop Dose Admin Sodium Chloride 1,000 mls @ 999 mls/hr 04/28/25 19:05 04/28/25 21:13 Ns IV 04/28/25 20:05 Infused .Q1H1M ONE Infusion Sodium Chloride 1,000 mls @ 999 mls/hr 04/28/25 19:05 04/28/25 21:13 Ns IV 04/28/25 20:05 Infused .Q1H1M ONE Infusion Insulin Glargine 40 unit 04/28/25 22:44 04/28/25 23:48 Insulin Glargine,Hum.Rec.Anlog 100 Unit/Ml 10 Ml Vial SUBCUT 04/28/25 22:45 40 unit ONCE ONE Administration Insulin Human Regular 8 unit 04/28/25 19:05 04/28/25 20:21 Insulin Regular, Human 100 Unit/Ml 10 Ml Vial IVPUSH 04/28/25 19:06 8 unit ONCE ONE Administration Medical Decision Making Medical Decision Making [facility] Narrative: Patient is diabetic with muscular pain elevated blood sugars with slight acidosis as she missed her insulin for last 2 days. Patient has received IV fluids anion gap closed patient is taking p.o. fluids feeling much better back to now will discharge patient home advised to continue to take insulin patient was giving Lantus insulin before she left Differential Diagnosis Differential Diagnoses: The differential diagnosis associated with the presentation includes Acidosis/infectious/DKA hyperglycemia Lab Data [facility] Lab Attestation statement: I reviewed the patient's lab results. 04/28/25 15:24 04/28/25 22:43 Labs: Lab Results 04/28/25 04/28/25 04/28/25 Range/Units 15:24 18:08 18:13 WBC 8.3 (4.8-10.8) X10*3/uL RBC 5.15 (4.20-5.50) X10*6/uL Hgb 15.1 D (12.0-16.0) g/dl Hct 45.1 D (37.0-47.0) % MCV 87.6 (80.0-98.0) fL MCH 29.3 (27.0-33.0) pg MCHC 33.5 (31.0-35.0) g/dl RDW 12.8 (11.0-16.0) % Plt Count 383 (160-400) X10*3/uL MPV 11.3 (9.4-12.3) fL Immature Gran % (Auto) 0.5 H (0.0-0.4) % Neut % (Auto) 78.4 H (45-73) % Lymph % (Auto) 17.1 L (20-40) % [place] % (Auto) 3.5 (2-11) % Eos % (Auto) 0.1 (0-4) % Baso % (Auto) 0.4 (0-2) % Lymph # (Auto) 1.4 (1.2-4.9) X10*3/uL [place] # (Auto) 0.3 (0.1-1.2) X10*3/uL Eos # (Auto) 0.0 (0.0-0.4) X10*3/uL Baso # (Auto) 0.0 (0.0-0.2) X10*3/uL Abs Immat Gran (auto) 0.04 H (0.00-0.03) X10*3/uL Absolute Neuts (auto) 6.5 (2.0-8.3) x10*3/uL Absolute Nucleated RBC 0.000 (0.0-0.012) X10*3/uL Nucleated RBC % (auto) 0.0 (0.0-0.2) /100WBC PT 10.5 L (10.9-12.4) SEC INR 0.9 (0.9-1.1) D-Dimer High Sensitivty < 150 NG/ML VBG pH 7.26 L (7.32-7.43) VBG pCO2 28 mmHg VBG pO2 30 mmHg VBG HCO3 12 L (22-26) mmol/L VBG O2 Saturation 41.0 % VBG Base Excess -12.4 mmol/L Sodium 131 L 133 L (135-145) mmol/L Potassium 5.2 H D 5.4 H (3.3-5.1) mmol/L Chloride 99 99 (96-108) mmol/L Carbon Dioxide 12 L 13 L (22-29) mmol/L Anion Gap 25 H 26 H (12-20) BUN 23 H 24 H (9-16) mg/dL Creatinine 1.18 1.14 (0.5-1.4) mg/dL Estim Creat Clear Calc 41.6 43.0 Estimated GFR 46 48 POC Glucose (60-115) mg/dL Random Glucose 388 H* 357 H* (60-115) mg/dL Osmolality 305 (281-305) mosm/kg Calcium 9.7 D 9.9 (8.4-10.2) mg/dL Magnesium 1.9 (1.6-2.6) mg/dL Total Bilirubin 0.4 (0.0-1.0) mg/dL AST 17 (5-31) U/L ALT 14 (0-31) U/L Alkaline Phosphatase 146 H (39-117) U/L Troponin I High Sens < 2.7 (<3.5-17.0) ng/L B-Natriuretic Peptide 12 (<100) pg/mL Total Protein 8.5 H (6.5-8.0) g/dL Albumin 4.8 (3.5-5.0) g/dL Beta-Hydroxybutyrate 7.68 H (0.02-0.27) mmol/L Influenza Type A (PCR) NEGATIVE (Negative) Influenza Type B (PCR) NEGATIVE (Negative) RSV RNA Qual (PCR) NEGATIVE (Negative) SARS-CoV-2 RNA (RT-PCR) NEGATIVE (Negative) 04/28/25 04/28/25 04/28/25 Range/Units 22:22 22:43 22:48 WBC (4.8-10.8) X10*3/uL RBC (4.20-5.50) X10*6/uL Hgb (12.0-16.0) g/dl Hct (37.0-47.0) % MCV (80.0-98.0) fL MCH (27.0-33.0) pg MCHC (31.0-35.0) g/dl RDW (11.0-16.0) % Plt Count (160-400) X10*3/uL MPV (9.4-12.3) fL Immature Gran % (Auto) (0.0-0.4) % Neut % (Auto) (45-73) % Lymph % (Auto) (20-40) % [place] % (Auto) (2-11) % Eos % (Auto) (0-4) % Baso % (Auto) (0-2) % Lymph # (Auto) (1.2-4.9) X10*3/uL [place] # (Auto) (0.1-1.2) X10*3/uL Eos # (Auto) (0.0-0.4) X10*3/uL Baso # (Auto) (0.0-0.2) X10*3/uL Abs Immat Gran (auto) (0.00-0.03) X10*3/uL Absolute Neuts (auto) (2.0-8.3) x10*3/uL Absolute Nucleated RBC (0.0-0.012) X10*3/uL Nucleated RBC % (auto) (0.0-0.2) /100WBC PT (10.9-12.4) SEC INR (0.9-1.1) D-Dimer High Sensitivty NG/ML VBG pH 7.29 L (7.32-7.43) VBG pCO2 27 mmHg VBG pO2 34 mmHg VBG HCO3 13 L (22-26) mmol/L VBG O2 Saturation 53.0 % VBG Base Excess -11.4 mmol/L Sodium 136 (135-145) mmol/L Potassium 4.4 (3.3-5.1) mmol/L Chloride 109 H (96-108) mmol/L Carbon Dioxide 14 L (22-29) mmol/L Anion Gap 17 (12-20) BUN 21 H (9-16) mg/dL Creatinine 0.83 (0.5-1.4) mg/dL Estim Creat Clear Calc 59.1 Estimated GFR > 60 POC Glucose 161 H (60-115) mg/dL Random Glucose 200 H (60-115) mg/dL Osmolality (281-305) mosm/kg Calcium 8.5 D (8.4-10.2) mg/dL Magnesium (1.6-2.6) mg/dL Total Bilirubin (0.0-1.0) mg/dL AST (5-31) U/L ALT (0-31) U/L Alkaline Phosphatase (39-117) U/L Troponin I High Sens (<3.5-17.0) ng/L B-Natriuretic Peptide (<100) pg/mL Total Protein (6.5-8.0) g/dL Albumin (3.5-5.0) g/dL Beta-Hydroxybutyrate 5.00 H (0.02-0.27) mmol/L Influenza Type A (PCR) (Negative) Influenza Type B (PCR) (Negative) RSV RNA Qual (PCR) (Negative) SARS-CoV-2 RNA (RT-PCR) (Negative) 04/28/25 Range/Units 23:44 WBC (4.8-10.8) X10*3/uL RBC (4.20-5.50) X10*6/uL Hgb (12.0-16.0) g/dl Hct (37.0-47.0) % MCV (80.0-98.0) fL MCH (27.0-33.0) pg MCHC (31.0-35.0) g/dl RDW (11.0-16.0) % Plt Count (160-400) X10*3/uL MPV (9.4-12.3) fL Immature Gran % (Auto) (0.0-0.4) % Neut % (Auto) (45-73) % Lymph % (Auto) (20-40) % [place] % (Auto) (2-11) % Eos % (Auto) (0-4) % Baso % (Auto) (0-2) % Lymph # (Auto) (1.2-4.9) X10*3/uL [place] # (Auto) (0.1-1.2) X10*3/uL Eos # (Auto) (0.0-0.4) X10*3/uL Baso # (Auto) (0.0-0.2) X10*3/uL Abs Immat Gran (auto) (0.00-0.03) X10*3/uL Absolute Neuts (auto) (2.0-8.3) x10*3/uL Absolute Nucleated RBC (0.0-0.012) X10*3/uL Nucleated RBC % (auto) (0.0-0.2) /100WBC PT (10.9-12.4) SEC INR (0.9-1.1) D-Dimer High Sensitivty NG/ML VBG pH (7.32-7.43) VBG pCO2 mmHg VBG pO2 mmHg VBG HCO3 (22-26) mmol/L VBG O2 Saturation % VBG Base Excess mmol/L Sodium (135-145) mmol/L Potassium (3.3-5.1) mmol/L Chloride (96-108) mmol/L Carbon Dioxide (22-29) mmol/L Anion Gap (12-20) BUN (9-16) mg/dL Creatinine (0.5-1.4) mg/dL Estim Creat Clear Calc Estimated GFR POC Glucose 311 H (60-115) mg/dL Random Glucose (60-115) mg/dL Osmolality (281-305) mosm/kg Calcium (8.4-10.2) mg/dL Magnesium (1.6-2.6) mg/dL Total Bilirubin (0.0-1.0) mg/dL AST (5-31) U/L ALT (0-31) U/L Alkaline Phosphatase (39-117) U/L Troponin I High Sens (<3.5-17.0) ng/L B-Natriuretic Peptide (<100) pg/mL Total Protein (6.5-8.0) g/dL Albumin (3.5-5.0) g/dL Beta-Hydroxybutyrate (0.02-0.27) mmol/L Influenza Type A (PCR) (Negative) Influenza Type B (PCR) (Negative) RSV RNA Qual (PCR) (Negative) SARS-CoV-2 RNA (RT-PCR) (Negative) Critical Care Time Critical Care Time Critical Care Time: Yes Total Critical Care Time: 55 Attestation: Time is exclusive of separately billable procedures. Time includes: direct patient care, patient reassessment, coordination of patient care, interpretation of data (laboratory data, pulse oximetry, arterial blood gases and chest xrays), review of patient's medical records, medical consultation and documentation of patient care. Procedures excluded from critical care time: central intravenous line placement and electrocardiography. Discharge Plan Discharge Clinical Impression: Diabetes mellitus with hyperglycemia Patient Disposition: Home, Self-Care Instructions: Diabetic Hyperglycemia (ED) Additional Instructions: Drink plenty of fluids Do not miss your insulin Follow up with your PCP if not better Prescriptions: No Action celecoxib [Celebrex] 200 mg capsule 200 mg PO BID Qty: 60 2RF (DME) walker Misc See Rx Instructions .MEDSUPPLY Qty: 1 0RF Rx Instructions: Folding Front wheeled walker DURATION 99 DAYS insulin glargine-yfgn [Semglee(insulin glarg-yfgn)Pen] 100 unit/mL (3 mL) insulin pen subcut rosuvastatin 10 mg tablet 10 mg PO BEDTIME meloxicam 15 mg tablet 15 mg PO DAILY Interventions: ED Discharge Assessment Last Done: 04/29/25 00:16 Discharge Date/Time: 04/29/25 00:24 Print Language: Ukrainian
[2025-04-28 15:31] LABS: MANUAL DIFF FLAG NO
[2025-04-28 15:32] LABS: Hematocrit 45.1 % (37.0-47.0); Hemoglobin 15.1 g/dl (12.0-16.0); Imm Gran Abs Auto 0.04 X10*3/uL (0.00-0.03); Imm Gran Pct Auto 0.5 % (0.0-0.4); Lymphocytes Absolute Auto 1.4 X10*3/uL (1.2-4.9); Mean Corpuscular HGB Conc 33.5 g/dl (31.0-35.0); Mean Corpuscular Hemoglobin 29.3 pg (27.0-33.0); Mean Corpuscular Volume 87.6 fL (80.0-98.0); NRBC Abs Auto 0.000 X10*3/uL (0.0-0.012); NRBC Pct Auto 0.0 /100WBC (0.0-0.2); Platelet Count 383 X10*3/uL (160-400); Red Blood Count 5.15 X10*6/uL (4.20-5.50); White Blood Count 8.3 X10*3/uL (4.8-10.8)
[2025-04-28 15:39] LABS: INTERNATIONAL NORM RATIO 0.9 (0.9-1.1); Prothrombin Time 10.5 SEC (10.9-12.4)
[2025-04-28 15:56] LABS: B Type Natriuretic Peptide 12 pg/mL (<100)
[2025-04-28 15:59] LABS: Alanine Aminotransferase 14 U/L (0-31); Albumin Level 4.8 g/dL (3.5-5.0); Alkaline Phosphatase 146 U/L (39-117); Anion Gap 25 (12-20); Aspartate Amino Transferase 17 U/L (5-31); Blood Urea Nitrogen 23 mg/dL (9-16); Calcium 9.7 mg/dL (8.4-10.2); Carbon Dioxide 12 mmol/L (22-29); Chloride 99 mmol/L (96-108); Creatinine Clr Calc Pharmacy 41.6; Estimated Glomerular Filt Rate 46; Magnesium 1.9 mg/dL (1.6-2.6); Potassium 5.2 mmol/L (3.3-5.1); Sodium 131 mmol/L (135-145); Total Protein 8.5 g/dL (6.5-8.0)
[2025-04-28 16:08] LABS: Troponin-I High Sensitivity < 2.7 ng/L (<3.5-17.0)
[2025-04-28 16:29] LABS: Resp Syncy Virus RNA Qual PCR NEGATIVE (Negative); SARS COV2 PCR INHOUSE NEGATIVE (Negative)
[2025-04-28 18:15] LABS: Venous Blood Gas Refer to POC result
[2025-04-28 18:17] LABS: VBG HCO3 12 mmol/L (22-26); VBG O2 % Saturation 41.0 %
[2025-04-28 18:40] LABS: Anion Gap 26 (12-20); Blood Urea Nitrogen 24 mg/dL (9-16); Calcium 9.9 mg/dL (8.4-10.2); Carbon Dioxide 13 mmol/L (22-29); Chloride 99 mmol/L (96-108); Creatinine Clr Calc Pharmacy 43.0; Estimated Glomerular Filt Rate 48; Potassium 5.4 mmol/L (3.3-5.1); Sodium 133 mmol/L (135-145)
[2025-04-28 18:46] LABS: Osmolality, Serum 305 mosm/kg (281-305)
[2025-04-28 19:48] LABS: D Dimer High Sensitivity < 150 NG/ML
--- NOTE | 2025-04-28 21:38 | PC.NURSE ---
Patient resting comfortably in stretcher watching TV. Oxygen is at 100%. Respirations are 14, even and unlabored. Pt waiting on plan of care from provider. Notified patient to press the nurse button if any assistance is needed. Pt alert and oriented x 4, able to make needs known, walks with a steady gait to and from the bathroom. Patient has walked to the bathroom once in the last hour. Pt also has a rollater at the bedside from home stating she uses it for longer distances. IV flushing well, with good blood return. Patient does not report any pain.
[2025-04-28 22:26] LABS: Glucose, Whole Blood 161 mg/dL (60-115)
[2025-04-28 22:54] LABS: Venous Blood Gas Refer to POC result
[2025-04-28 22:54] LABS: VBG HCO3 13 mmol/L (22-26); VBG O2 % Saturation 53.0 %
[2025-04-28 23:09] LABS: Anion Gap 17 (12-20); Blood Urea Nitrogen 21 mg/dL (9-16); Calcium 8.5 mg/dL (8.4-10.2); Carbon Dioxide 14 mmol/L (22-29); Chloride 109 mmol/L (96-108); Creatinine Clr Calc Pharmacy 59.1; Estimated Glomerular Filt Rate > 60; Potassium 4.4 mmol/L (3.3-5.1); Sodium 136 mmol/L (135-145)
[2025-04-28 23:47] LABS: Glucose, Whole Blood 311 mg/dL (60-115)
[2025-04-28] MEDS: Insulin Glargine,Hum.rec.anlog 100 UNIT/ML 10 ML VIAL 40 UNIT SUBCUT (23:48)
[2025-04-29 00:16] VITALS: BP 109/54; PULSE 109; RESP 16; TEMP 36.8; O2SAT 99
== END 2025-04-29 00:24 | disposition home or self-care (01) ==
PROVIDERS: Physician Assistant; Registered Nurse Emergency; Emergency Provider Internal Medicine; PCP Internal Medicine
DX: E11.65 Type 2 diabetes mellitus with hyperglycemia (principal); M25.511 Pain in right shoulder; R06.02 Shortness of breath; Z79.4 Long term (current) use of insulin; Z79.899 Other long term (current) drug therapy
CPT/HCPCS: 36415; 71045; 80048; 80053; 82010; 82803; 82947; 83735; 83880; 83930; 84484; 85025; 85379; 85610; 87637; 93005; 96361; 96374; 99284; 99285

== ENCOUNTER → 2025-04-28 14:52 | Outpatient (BNV) | payer OTHER, SELFPAY | PROVIDERS: Emergency Provider Internal Medicine; PCP Internal Medicine; Visit Provider Internal Medicine Cardiovascular Disease | DX: R00.0 Tachycardia, unspecified (principal) | CPT/HCPCS: 93010 ==

== ENCOUNTER → 2025-04-28 19:40 | Outpatient (BNV) | payer OTHER, SELFPAY | PROVIDERS: Emergency Provider Internal Medicine; PCP Internal Medicine; Visit Provider Student in an Organized Health Care Education/Training Program | DX: M54.6 Pain in thoracic spine (principal) | CPT/HCPCS: 71045 ==

== ENCOUNTER 2025-08-05 21:21 | Emergency (ER) | payer OTHER, SELFPAY ==
--- NOTE | ~2025-08-05 | XR_ITS ---
CLINICAL HISTORY: SOB 2 view chest x-ray Comparison: 04/28/2025 Findings: Lungs are clear without acute infiltrates. No pneumothorax. Heart size normal. No acute bony abnormalities. Impression: No acute processes This document has been electronically signed by: Carl Mcgraw MD on 08/05/2025 23:03:25
[2025-08-05 21:29] VITALS: BP 106/79; PULSE 114; RESP 20; TEMP 36.8; O2SAT 98; BMI 22.5
--- NOTE | 2025-08-05 21:35 | ECG_ITS ---
Test Reason : PALPITATIONS Blood Pressure : */* mmHG Vent. Rate : 98 BPM Atrial Rate : 98 BPM P-R Int : 130 ms QRS Dur : 74 ms QT Int : 332 ms P-R-T Axes : 19 -9 48 degrees QTcB Int : 423 ms Normal sinus rhythm Cannot rule out Anterior infarct (cited on or before 03-Jan-2020) Abnormal ECG When compared with ECG of 28-Apr-2025 14:50, Nonspecific T wave abnormality no longer evident in Lateral leads Referred By: Generic ED Physician Electronically Signed By: LIZETTE MADRID
[2025-08-05 21:54] LABS: MANUAL DIFF FLAG NO
[2025-08-05 22:00] LABS: Hematocrit 40.9 % (37.0-47.0); Hemoglobin 14.2 g/dl (12.0-16.0); Imm Gran Abs Auto 0.02 X10*3/uL (0.00-0.03); Imm Gran Pct Auto 0.2 % (0.0-0.4); Lymphocytes Absolute Auto 2.0 X10*3/uL (1.2-4.9); Mean Corpuscular HGB Conc 34.7 g/dl (31.0-35.0); Mean Corpuscular Hemoglobin 28.9 pg (27.0-33.0); Mean Corpuscular Volume 83.3 fL (80.0-98.0); NRBC Abs Auto 0.000 X10*3/uL (0.0-0.012); NRBC Pct Auto 0.0 /100WBC (0.0-0.2); Platelet Count 346 X10*3/uL (160-400); Red Blood Count 4.91 X10*6/uL (4.20-5.50); White Blood Count 8.0 X10*3/uL (4.8-10.8)
[2025-08-05 22:09] LABS: Glucose, Whole Blood 529 mg/dL (60-115)
[2025-08-05 22:09] LABS: Glucose, Whole Blood 493 mg/dL (60-115)
[2025-08-05 22:20] LABS: Anion Gap 18 (12-20)
[2025-08-05 22:25] LABS: Troponin-I High Sensitivity 2.9 ng/L (<3.5-17.0)
[2025-08-05 22:29] LABS: Alanine Aminotransferase 13 U/L (0-31); Albumin Level 4.6 g/dL (3.5-5.0); Alkaline Phosphatase 119 U/L (39-117); Aspartate Amino Transferase 17 U/L (5-31); Blood Urea Nitrogen 26 mg/dL (9-16); Calcium 10.0 mg/dL (8.4-10.2); Carbon Dioxide 18 mmol/L (22-29); Chloride 96 mmol/L (96-108); Creatinine Clr Calc Pharmacy 38.8; Estimated Glomerular Filt Rate 41; Magnesium 1.9 mg/dL (1.6-2.6); Potassium 4.3 mmol/L (3.3-5.1); Sodium 128 mmol/L (135-145); Total Protein 7.9 g/dL (6.5-8.0)
[2025-08-05 22:36] LABS: Resp Syncy Virus RNA Qual PCR NEGATIVE (Negative); SARS COV2 PCR INHOUSE NEGATIVE (Negative)
[2025-08-05] MEDS: Lactated Ringers 1,000 ML 999 ML IV (23:08)
--- NOTE | 2025-08-05 23:11 | PC.NURSE ---
pt a&ox4, respirations even and unlabored. pt reports x1 week of nausea and overall feeling unwell. pt reports today she was at work when she felt dizzy, nauseous and weak. pt reports having sugar taken which was high and staff at work gave pt 6U insulin. pt states she took her insulin today. 20g left ac and fluids administering. vss, nsr on tele
[2025-08-05 23:13] VITALS: PULSE 89
[2025-08-05 23:22] LABS: Venous Blood Gas Refer to POC result
[2025-08-05 23:23] LABS: VBG HCO3 21 mmol/L (22-26); VBG O2 % Saturation 46.0 %
--- NOTE | 2025-08-06 00:03 | ED.DIZZY ---
HPI - Dizziness General Chief Complaint: Arrhythmia/Palpitations Stated Complaint: High blood pressure/sugars @ 360 Time Seen by Provider: 08/05/25 22:51 Source: patient, RN notes reviewed, old records reviewed and educational sign language interpreter Mode of arrival: ambulatory Limitations: language barrier History of Present Illness ED Provider: Dr. Maddy Porter HPI Narrative: 65-year-old female with insulin-dependent diabetes mellitus (IDDM) and arthritis who presents with acute onset dizziness, fatigue, palpitations, and nausea that began at work immediately prior to ED arrival. She reports feeling her heart beating rapidly ?in my neck,? transient shortness of breath that has since resolved, mild diarrhea, and dry mouth. She denies chest pain, loss of consciousness, fever, vomiting, or cough. Appetite has been poor for ~2 weeks; she has mainly been drinking water. She has not been able to check her blood glucose (BG) at home for ~2 weeks due to a malfunctioning glucometer; a replacement is now in her car. Prior to arrival she self-administered 6 units of NovoLog. She describes confusion regarding her insulin dosing: previously 20 units of NovoLog per dose and 30?40 units of Lantus, but recent guidance was to give 2 units NovoLog with meals depending on intake. No home blood pressure medications. This is her second ED visit for similar dizziness. She feels excessively tired and would like to avoid work until she is feeling better. Related Data Home Medications ?Medication ?Instructions ?Recorded ?Confirmed insulin glargine-yfgn 100 unit/mL unit subcut 10/19/23 (3 mL) subcutaneous pen (Semglee (insulin glargine-yfgn) Pen) meloxicam 15 mg tablet 15 mg PO DAILY 10/19/23 rosuvastatin 10 mg tablet 10 mg PO BEDTIME 10/19/23 Previous Rx's ?Medication ?Instructions ?Recorded celecoxib 200 mg capsule (Celebrex) 200 mg PO BID #60 caps 08/07/24 walker #1 ea 09/24/24 ondansetron 4 mg disintegrating 4 mg PO Q8H PRN nausea and 08/06/25 tablet vomiting #10 tabs Allergies Allergy/AdvReac Type Severity Reaction Status Date / Time No Known Allergies (NO KNOWN Allergy Unknown UNKNOWN Verified 08/05/25 21:34 ALLERGIES) Review of Systems Review of Systems: as per HPI, full review of systems performed and negative but for the above mentioned pertinent positives and negatives. [facility] Family History Family History Father Hypertension Heart disease Mother Diabetes Degenerative joint disease Daughter ADD (attention deficit disorder) Anorexia Daughter ADD (attention deficit disorder) Social History Social History Alcohol intake: never Patient Tobacco Use Status: Former Tobacco user Smoked in Last 30 Days: No Use of substances other than those prescribed or required for medical reasons: No Advance Directives: No Advance Directives Information Provided: No Physical Exam Exam: Exam: GENERAL: Ill-Appearing, appears uncomfortable. SKIN: Normal skin color for ethnicity, warm, dry, no rashes noted. HEENT: Normocephalic, atraumatic, no stridor, dry mucous membranes, dentition intact, EOMI, PERRLA. NECK: Soft, supple, full ROM, midline structures nontender, no step-offs, no deformities, no lymphadenopathy. CHEST: Heart regular tachycardia, no murmurs, symmetric chest rise and fall. PULMONARY: Clear to auscultation bilaterally, diminished at the bases, no labored breathing, no wheezes/rhales/rhonchi. ABDOMINAL: Soft, nondistended, nontender, positive bowel sounds in all quadrants. : Deferred. MUSCULOSKELETAL: Normal tone, full range of motion, no deformities, no peripheral edema. NEURO: Alert and oriented x3, CN II through XII intact, equal strength and sensation bilateral upper and lower extremities, no focal neurologic deficits. PSYCHIATRIC: Flat affect, fluid speech, good eye contact and appropriate demeanor. Vital Signs: Vital Signs: Last Vital Signs Temp 98.2 F 08/06/25 03:20 Pulse 75 08/06/25 03:20 Resp 17 08/06/25 03:20 BP 112/65 08/06/25 03:20 Pulse Ox 97 08/06/25 03:20 O2 Del Method Room Air 08/06/25 03:20 BMI result Body Mass Index 22.5 Medications Administered Discontinued Medications Generic Name Dose Route Start Last Admin Trade Name Freq PRN Reason Stop Dose Admin Dicyclomine HCl 20 mg 08/06/25 00:56 08/06/25 01:51 Dicyclomine Hcl 10 Mg Capsule PO 08/06/25 00:57 20 mg ONCE ONE Administration Lactated Ringer's 1,000 mls @ 999 mls/hr 08/05/25 22:58 08/06/25 03:30 Lr IV 08/05/25 23:58 Infused .Q1H1M ONE Infusion Lactated Ringer's 1,000 mls @ 999 mls/hr 08/06/25 02:10 08/06/25 02:48 Lr IV 08/06/25 03:10 999 mls/hr .Q1H1M ONE Administration Ondansetron HCl 4 mg 08/06/25 00:56 08/06/25 01:51 Ondansetron Hcl 4 Mg/2 Ml Vial IVPUSH 08/06/25 00:57 4 mg ONCE ONE Administration Medical Decision Making Medical Decision Making [facility] Narrative: Patient presents today with chief complaint of hyperglycemia. Differential diagnosis includes ketoacidosis, hyperosmolar hyperglycemic syndrome, dehydration, infection, insulin noncompliance, among many others.? Broad-based work-up was initiated to evaluate the hyperglycemia further. Patient remains hemodynamically stable here in the emergency department. No evidence of DKA today. Patient is feeling improved after 2 L of IV fluid. Suspect that her blood sugars have been running high for more than just the last couple of days. She is has been without her glucometer for about 2 weeks now and I suspect very poor glycemic control overall. Otherwise, she has no evidence of infectious process. No reported fever. Hemodynamically stable and at this point ready for discharge. Using shared decision making, plan for discharge home to follow-up with primary care and/or specialist. Patient understands and agrees with plan for discharge. Discharged home in stable condition. Differential Diagnosis Differential Diagnoses: The differential diagnosis associated with the presentation includes (As above) Admission/Observation Consideration of admission/observation: Escalation of care including admission/observation considered Lab Data [facility] Lab Attestation statement: I reviewed the patient's lab results. 08/05/25 21:50 08/05/25 21:50 Labs: Lab Results 08/05/25 08/05/25 08/05/25 Range/Units 21:46 21:50 22:02 WBC 8.0 (4.8-10.8) X10*3/uL RBC 4.91 (4.20-5.50) X10*6/uL Hgb 14.2 (12.0-16.0) g/dl Hct 40.9 (37.0-47.0) % MCV 83.3 (80.0-98.0) fL MCH 28.9 (27.0-33.0) pg MCHC 34.7 (31.0-35.0) g/dl RDW 12.1 (11.0-16.0) % Plt Count 346 (160-400) X10*3/uL MPV 11.1 (9.4-12.3) fL Immature Gran % (Auto) 0.2 (0.0-0.4) % Neut % (Auto) 69.0 (45-73) % Lymph % (Auto) 24.3 (20-40) % [place] % (Auto) 5.5 (2-11) % Eos % (Auto) 0.5 (0-4) % Baso % (Auto) 0.5 (0-2) % Lymph # (Auto) 2.0 (1.2-4.9) X10*3/uL [place] # (Auto) 0.4 (0.1-1.2) X10*3/uL Eos # (Auto) 0.0 (0.0-0.4) X10*3/uL Baso # (Auto) 0.0 (0.0-0.2) X10*3/uL Abs Immat Gran (auto) 0.02 (0.00-0.03) X10*3/uL Absolute Neuts (auto) 5.5 (2.0-8.3) x10*3/uL Absolute Nucleated RBC 0.000 (0.0-0.012) X10*3/uL Nucleated RBC % (auto) 0.0 (0.0-0.2) /100WBC VBG pH (7.32-7.43) VBG pCO2 mmHg VBG pO2 mmHg VBG HCO3 (22-26) mmol/L VBG O2 Saturation % VBG Base Excess mmol/L Sodium 128 L (135-145) mmol/L Potassium 4.3 (3.3-5.1) mmol/L Chloride 96 (96-108) mmol/L Carbon Dioxide 18 L (22-29) mmol/L Anion Gap 18 (12-20) BUN 26 H (9-16) mg/dL Creatinine 1.30 (0.5-1.4) mg/dL Estim Creat Clear Calc 38.8 Estimated GFR 41 POC Glucose 529 H* (60-115) mg/dL Random Glucose 561 H* (60-115) mg/dL Calcium 10.0 D (8.4-10.2) mg/dL Magnesium 1.9 (1.6-2.6) mg/dL Total Bilirubin 0.3 (0.0-1.0) mg/dL Direct Bilirubin 0.1 (0.0-0.5) mg/dL AST 17 (5-31) U/L ALT 13 (0-31) U/L Alkaline Phosphatase 119 H (39-117) U/L Troponin I High Sens 2.9 (<3.5-17.0) ng/L Total Protein 7.9 (6.5-8.0) g/dL Albumin 4.6 (3.5-5.0) g/dL Beta-Hydroxybutyrate 1.96 H (0.02-0.27) mmol/L Beta HCG, Quant < 2 mIU/mL Urine Color Urine Appearance Urine pH (5.0-9.0) Ur Specific [place] (1.005-1.025) Urine Protein (Neg-Trace) mg/dL Urine Glucose (UA) (Negative) mg/dL Urine Ketones (Negative) mg/dL Urine Blood (Negative) Urine Nitrite (Negative) Ur Leukocyte Esterase (Negative) Urine RBC (0-2) /HPF Urine WBC (0-5) /HPF Ur Squamous Epith Cells (0-2) /HPF Urine Bacteria (None Seen) Hyaline Casts (0-2) /LPF Influenza Type A (PCR) NEGATIVE (Negative) Influenza Type B (PCR) NEGATIVE (Negative) RSV RNA Qual (PCR) NEGATIVE (Negative) SARS-CoV-2 RNA (RT-PCR) NEGATIVE (Negative) 08/05/25 08/05/25 08/06/25 Range/Units 22:05 23:19 01:11 WBC (4.8-10.8) X10*3/uL RBC (4.20-5.50) X10*6/uL Hgb (12.0-16.0) g/dl Hct (37.0-47.0) % MCV (80.0-98.0) fL MCH (27.0-33.0) pg MCHC (31.0-35.0) g/dl RDW (11.0-16.0) % Plt Count (160-400) X10*3/uL MPV (9.4-12.3) fL Immature Gran % (Auto) (0.0-0.4) % Neut % (Auto) (45-73) % Lymph % (Auto) (20-40) % [place] % (Auto) (2-11) % Eos % (Auto) (0-4) % Baso % (Auto) (0-2) % Lymph # (Auto) (1.2-4.9) X10*3/uL [place] # (Auto) (0.1-1.2) X10*3/uL Eos # (Auto) (0.0-0.4) X10*3/uL Baso # (Auto) (0.0-0.2) X10*3/uL Abs Immat Gran (auto) (0.00-0.03) X10*3/uL Absolute Neuts (auto) (2.0-8.3) x10*3/uL Absolute Nucleated RBC (0.0-0.012) X10*3/uL Nucleated RBC % (auto) (0.0-0.2) /100WBC VBG pH 7.44 H (7.32-7.43) VBG pCO2 31 mmHg VBG pO2 31 mmHg VBG HCO3 21 L (22-26) mmol/L VBG O2 Saturation 46.0 % VBG Base Excess -1.1 mmol/L Sodium (135-145) mmol/L Potassium (3.3-5.1) mmol/L Chloride (96-108) mmol/L Carbon Dioxide (22-29) mmol/L Anion Gap (12-20) BUN (9-16) mg/dL Creatinine (0.5-1.4) mg/dL Estim Creat Clear Calc Estimated GFR POC Glucose 493 H* (60-115) mg/dL Random Glucose (60-115) mg/dL Calcium (8.4-10.2) mg/dL Magnesium (1.6-2.6) mg/dL Total Bilirubin (0.0-1.0) mg/dL Direct Bilirubin (0.0-0.5) mg/dL AST (5-31) U/L ALT (0-31) U/L Alkaline Phosphatase (39-117) U/L Troponin I High Sens 2.9 (<3.5-17.0) ng/L Total Protein (6.5-8.0) g/dL Albumin (3.5-5.0) g/dL Beta-Hydroxybutyrate (0.02-0.27) mmol/L Beta HCG, Quant mIU/mL Urine Color Urine Appearance Urine pH (5.0-9.0) Ur Specific [place] (1.005-1.025) Urine Protein (Neg-Trace) mg/dL Urine Glucose (UA) (Negative) mg/dL Urine Ketones (Negative) mg/dL Urine Blood (Negative) Urine Nitrite (Negative) Ur Leukocyte Esterase (Negative) Urine RBC (0-2) /HPF Urine WBC (0-5) /HPF Ur Squamous Epith Cells (0-2) /HPF Urine Bacteria (None Seen) Hyaline Casts (0-2) /LPF Influenza Type A (PCR) (Negative) Influenza Type B (PCR) (Negative) RSV RNA Qual (PCR) (Negative) SARS-CoV-2 RNA (RT-PCR) (Negative) 08/06/25 08/06/25 08/06/25 Range/Units 01:55 01:59 04:19 WBC (4.8-10.8) X10*3/uL RBC (4.20-5.50) X10*6/uL Hgb (12.0-16.0) g/dl Hct (37.0-47.0) % MCV (80.0-98.0) fL MCH (27.0-33.0) pg MCHC (31.0-35.0) g/dl RDW (11.0-16.0) % Plt Count (160-400) X10*3/uL MPV (9.4-12.3) fL Immature Gran % (Auto) (0.0-0.4) % Neut % (Auto) (45-73) % Lymph % (Auto) (20-40) % [place] % (Auto) (2-11) % Eos % (Auto) (0-4) % Baso % (Auto) (0-2) % Lymph # (Auto) (1.2-4.9) X10*3/uL [place] # (Auto) (0.1-1.2) X10*3/uL Eos # (Auto) (0.0-0.4) X10*3/uL Baso # (Auto) (0.0-0.2) X10*3/uL Abs Immat Gran (auto) (0.00-0.03) X10*3/uL Absolute Neuts (auto) (2.0-8.3) x10*3/uL Absolute Nucleated RBC (0.0-0.012) X10*3/uL Nucleated RBC % (auto) (0.0-0.2) /100WBC VBG pH (7.32-7.43) VBG pCO2 mmHg VBG pO2 mmHg VBG HCO3 (22-26) mmol/L VBG O2 Saturation % VBG Base Excess mmol/L Sodium (135-145) mmol/L Potassium (3.3-5.1) mmol/L Chloride (96-108) mmol/L Carbon Dioxide (22-29) mmol/L Anion Gap (12-20) BUN (9-16) mg/dL Creatinine (0.5-1.4) mg/dL Estim Creat Clear Calc Estimated GFR POC Glucose 386 H* 341 H (60-115) mg/dL Random Glucose (60-115) mg/dL Calcium (8.4-10.2) mg/dL Magnesium (1.6-2.6) mg/dL Total Bilirubin (0.0-1.0) mg/dL Direct Bilirubin (0.0-0.5) mg/dL AST (5-31) U/L ALT (0-31) U/L Alkaline Phosphatase (39-117) U/L Troponin I High Sens (<3.5-17.0) ng/L Total Protein (6.5-8.0) g/dL Albumin (3.5-5.0) g/dL Beta-Hydroxybutyrate (0.02-0.27) mmol/L Beta HCG, Quant mIU/mL Urine Color Yellow Urine Appearance Clear Urine pH 5.5 (5.0-9.0) Ur Specific [place] >= 1.030 H (1.005-1.025) Urine Protein Negative (Neg-Trace) mg/dL Urine Glucose (UA) >=1000 H (Negative) mg/dL Urine Ketones 15 (Negative) mg/dL Urine Blood Negative (Negative) Urine Nitrite Negative (Negative) Ur Leukocyte Esterase Negative (Negative) Urine RBC 0-2 (0-2) /HPF Urine WBC 0-5 (0-5) /HPF Ur Squamous Epith Cells 0-2 (0-2) /HPF Urine Bacteria None Seen (None Seen) Hyaline Casts 0-2 (0-2) /LPF Influenza Type A (PCR) (Negative) Influenza Type B (PCR) (Negative) RSV RNA Qual (PCR) (Negative) SARS-CoV-2 RNA (RT-PCR) (Negative) Independent Interpretation I performed an independent interpretation of an: EKG and Plain X-Ray Interpretation: My independent interpretation of the chest x-ray reveals no consolidations, pulmonary edema, pleural effusion, pneumothorax, obvious bony abnormalities. My independent interpretation of the ECG reveals normal sinus rhythm with rate of 98, leftward axis, normal intervals, no ST elevations or depressions to suggest ischemic changes, relatively unchanged from previous on 04/28/2025. Radiology Impression Discussion of test interpretation with radiology: I have reviewed the radiologist's reading. External Record Review External record reviewed: Inpatient record Prescription Management I considered prescription management with: Other (Antiemetics) Chronic Conditions Patient?s care impacted by: Diabetes Social Determinants Patient?s care significantly limited by Social Determinants of Health including: Other Social Determinant of Health Discharge Plan Discharge Clinical Impression: Diabetes mellitus with hyperglycemia, Acute dehydration, Viral gastroenteritis Patient Disposition: Home, Self-Care Instructions: Dehydration (ED), Type 2 Diabetes Management for Adults (ED) Additional Instructions: Your blood work today is reassuring though your blood sugars has been running very high. You need to have your glucometer to check your blood sugars daily. Take your long-acting insulin (Lantus) daily, preferably at night. Check with your primary care doctor regarding the dose however I do believe it would be around 30 units. Take your short-acting insulin (NovoLog) with the meals. Avoid work until your blood sugars are better controlled. Return to the hospital with any new or worsening symptoms including: Worsening dizziness, fever greater than 100?, chest pain, difficulty breathing, inability to tolerate food or drink, any new symptom that concerns you. Call 911 with any medical emergency. Prescriptions: New ondansetron 4 mg tablet,disintegrating 4 mg PO Q8H PRN (Reason: nausea and vomiting) Qty: 10 0RF No Action celecoxib [Celebrex] 200 mg capsule 200 mg PO BID Qty: 60 2RF (DME) walker Misc See Rx Instructions .MEDSUPPLY Qty: 1 0RF Rx Instructions: Folding Front wheeled walker DURATION 99 DAYS insulin glargine-yfgn [Semglee(insulin glarg-yfgn)Pen] 100 unit/mL (3 mL) insulin pen subcut rosuvastatin 10 mg tablet 10 mg PO BEDTIME meloxicam 15 mg tablet 15 mg PO DAILY Stand Alone Forms: Work/School Release Print Language: Surinamese
[2025-08-06 01:04] VITALS: BP 124/72; PULSE 89; RESP 16; TEMP 36.9; O2SAT 99
[2025-08-06 01:35] LABS: Troponin-I High Sensitivity 2.9 ng/L (<3.5-17.0)
[2025-08-06 02:02] LABS: Appearance Urine Clear; Glucose Urine UA >=1000 mg/dL (Negative); PH 5.5 (5.0-9.0); Specific Gravity - Urine >= 1.030 (1.005-1.025); UMIC TRIGGER UACC YES
[2025-08-06 02:03] LABS: Glucose, Whole Blood 386 mg/dL (60-115)
[2025-08-06] MEDS: Lactated Ringers 1,000 ML 999 ML IV (02:48)
[2025-08-06 03:20] VITALS: BP 112/65; PULSE 75; RESP 17; TEMP 36.8; O2SAT 97
--- NOTE | 2025-08-06 03:21 | PC.NURSE ---
delay in fluids ending as pt keeps bending arm which does not allow fluids to fully infuse. aware.
[2025-08-06 04:24] LABS: Glucose, Whole Blood 341 mg/dL (60-115)
[2025-08-06 05:11] VITALS: BP 112/65; PULSE 75; RESP 17; TEMP 36.8; O2SAT 97
== END 2025-08-06 05:12 | disposition home or self-care (01) ==
PROVIDERS: Emergency Provider Emergency Medicine; PCP Internal Medicine
DX: E86.0 Dehydration (principal); A08.4 Viral intestinal infection, unspecified; E11.65 Type 2 diabetes mellitus with hyperglycemia; Z79.4 Long term (current) use of insulin; Z03.818 Encounter for observation for suspected exposure to other biological agents ruled out
CPT/HCPCS: 36415; 71046; 80048; 80076; 81001; 82010; 82803; 82947; 83735; 84484; 84702; 85025; 87637; 93005; 96361; 96374; 99285; J2405; J7120

== ENCOUNTER → 2025-08-05 21:35 | Outpatient (BNV) | payer OTHER, SELFPAY | PROVIDERS: Emergency Provider Emergency Medicine; PCP Internal Medicine; Visit Provider Internal Medicine | DX: R94.31 Abnormal electrocardiogram [ECG] [EKG] (principal); R00.2 Palpitations | CPT/HCPCS: 93010 ==

== ENCOUNTER → 2025-08-05 22:12 | Outpatient (BNV) | payer OTHER, SELFPAY | PROVIDERS: Emergency Provider Emergency Medicine; PCP Internal Medicine; Visit Provider Radiology Diagnostic Radiology | DX: R06.02 Shortness of breath (principal) | CPT/HCPCS: 71046 ==

== ENCOUNTER 2025-08-12 10:33 | Outpatient (REF) | payer OTHER, SELFPAY ==
[2025-08-12 14:11] LABS: Alanine Aminotransferase 14 U/L (0-31); Albumin Level 4.3 g/dL (3.5-5.0); Alkaline Phosphatase 97 U/L (39-117); Anion Gap 10 (12-20); Aspartate Amino Transferase 20 U/L (5-31); Blood Urea Nitrogen 15 mg/dL (9-16); Calcium 9.7 mg/dL (8.4-10.2); Carbon Dioxide 28 mmol/L (22-29); Chloride 102 mmol/L (96-108); Cholesterol 167 mg/dL (<200); Estimated Glomerular Filt Rate > 60; HDL Cholesterol 72 mg/dL (>40); Potassium 4.6 mmol/L (3.3-5.1); Sodium 135 mmol/L (135-145); Total Protein 7.5 g/dL (6.5-8.0); Triglycerides 115 mg/dL (<150)
== END 2025-08-12 10:34 | disposition home or self-care (01) ==
LOC: HO.10HDL 10:33
PROVIDERS: Visit Provider Internal Medicine
DX: Z00.00 Encounter for general adult medical examination without abnormal findings (principal); E11.65 Type 2 diabetes mellitus with hyperglycemia; M17.0 Bilateral primary osteoarthritis of knee; R80.8 Other proteinuria
CPT/HCPCS: 36415; 80053; 80061; 83036